=== PATIENT | female | born 1950 | race American Indian/Alaskan Native ===

== ENCOUNTER 2017-08-21 09:31 | Outpatient (CLI) | payer MEDICARE ==
--- NOTE | 2017-08-21 09:54 | XRay Report ---
RIGHT HAND RADIOGRAPHS INDICATION: Right hand pain. COMPARISON: None similar at this institution. FINDINGS: AP, lateral and oblique right hand radiographs demonstrate intact articulation. No suspicious erosions. Slight interphalangeal joint degenerative changes and osteopenia may be present. Unremarkable soft tissues. CONCLUSION: Slight age-appropriate degenerative changes without acute right hand radiographic abnormality, as above. Please correlate. Thank you for the opportunity to participate in this patient's care.
== END 2017-08-21 09:32 | disposition home or self-care (01) ==
LOC: SPVIMAG 09:31
PROVIDERS: ATTEND Orthopaedic Surgery
DX: M19.041 Primary osteoarthritis, right hand (principal)